=== PATIENT | male | born 1940 | race Caucasian/White ===

== ENCOUNTER 2023-10-24 11:13 | Inpatient (IN) | payer MEDICARE, MEDICAID ==
[2023-10-24 11:56] LABS: BASOPHILS PERCENT AUTO 0.1 % (0.2-1.2); EOSINOPHILS ABSOLUTE AUTO 0.5 x10^3/uL (0.0-0.5); EOSINOPHILS PERCENT AUTO 3.6 % (0.0-4.0); HEMATOCRIT 47.1 % (40.0-52.0); HEMOGLOBIN 14.3 g/dL (14.0-18.0); IMMATURE GRAN ABSOLUTE AUTO 0.04 x10^3/uL (0.00-0.07); LYMPHOCYTES ABSOLUTE AUTO 1.3 x10^3/uL (1.0-4.8); LYMPHOCYTES PERCENT AUTO 9.3 % (25.0-50.0); MEAN CORPUSCULAR HEMOGLOBIN 30.2 pg (26.0-32.0); MEAN CORPUSCULAR HGB CONC 30.4 g/dL (32.0-36.0); MEAN CORPUSCULAR VOLUME 99.4 fL (78.0-93.0); MONOCYTES ABSOLUTE AUTO 1.2 x10^3/uL (0.0-0.8); MONOCYTES PERCENT AUTO 8.9 % (2.0-11.0); NEUTROPHILS ABSOLUTE AUTO 10.7 x10^3/uL (1.8-7.7); NEUTROPHILS PERCENT AUTO 77.8 % (50.0-80.0); PLATELET COUNT,PLT 159 x10^3/uL (130-400); RED BLOOD CELL COUNT 4.74 x10^6/uL (4.5-6.0); WHITE BLOOD CELL COUNT,WBC 13.8 x10^3/uL (4.0-10.0)
[2023-10-24 12:20] LABS: A/G RATIO 0.66; ALANINE AMINOTRANSFERASE,ALT 49 U/L (16-63); ALBUMIN 2.9 g/dL (3.4-5.0); ALKALINE PHOSPHATASE 62 U/L (46-116); ASPARTATE AMNIOTRANSFERASE,AST 31 U/L (15-37); BILIRUBIN TOTAL 0.7 mg/dL (0.2-1.0); CALCIUM 8.6 mg/dL (8.5-10.1); CARBON DIOXIDE,CO2 27 mmol/L (21-32); CHLORIDE,CL 125 mmol/L (98-107); GLUCOSE RANDOM 140 mg/dL (70-99); POTASSIUM,K 4.9 mmol/L (3.5-5.1); PROTEIN TOTAL,TP 7.3 g/dL (6.4-8.2)
[2023-10-24 12:21] LABS: ANION GAP 17.9 mmol/L (5-15); ESTIMATED GFR 14 mL/min (>=60)
[2023-10-24 12:22] LABS: BLOOD UREA NITROGEN,BUN 148 mg/dL (7-18); CREATININE 4.1 mg/dL (0.70-1.30); SODIUM,NA 165 mmol/L (136-145)
[2023-10-24] MEDS: Lactated Ringers 1,000 ML IV ONE (12:31)
[2023-10-24 12:49] LABS: CORONAVIRUS COVID-19 NAA NEGATIVE (NEGATIVE)
[2023-10-24 12:50] LABS: INFLUENZA B NAA NEGATIVE (NEGATIVE)
[2023-10-24 12:51] LABS: INFLUENZA A NAA NEGATIVE (NEGATIVE); RESPIRATORY SYNCYTIAL VIR NAA NEGATIVE (NEGATIVE)
[2023-10-24] MEDS: cefTRIAXone 1 GM Vial IVPUSH ONE (14:02)
[2023-10-24] MEDS ORDERED: Acetaminophen 325 MG Tab PO PRN (17:43)
[2023-10-24] MEDS ORDERED: Ondansetron 4 MG Tab.DIS PO PRN (17:43)
[2023-10-24] MEDS ORDERED: Polyethylene Glycol 3350 Powder 17 GM Packet PO PRN (17:43)
[2023-10-24 18:31] LABS: ANION GAP 16.7 mmol/L (5-15); CALCIUM 8.6 mg/dL (8.5-10.1); EST CRCL DRUG DOSING (CG) 15.15 mL/min; POTASSIUM,K 4.7 mmol/L (3.5-5.1)
[2023-10-24 18:32] LABS: CREATININE 3.7 mg/dL (0.70-1.30)
[2023-10-24] MEDS: Sodium Chloride 0.45% 1,000 ML IV SCH (18:49)
[2023-10-24] MEDS: Sodium Chloride 0.45% 1,000 ML IV ONE (21:55)
[2023-10-24 22:08] LABS: BILIRUBIN,URINE NEGATIVE (NEGATIVE); COLOR,URINE YELLOW (YELLOW); GLUCOSE,URINE NEGATIVE (NEGATIVE); KETONES,URINE NEGATIVE (NEGATIVE); LEUKOCYTE ESTERASE,URINE LARGE (NEGATIVE); NITRITE,URINE POSITIVE (NEGATIVE); OCCULT BLOOD,URINE TRACE-INTACT (NEGATIVE); PH,URINE 8.5 (5.0-8.0); PROTEIN,URINE 30 mg/dL (NEGATIVE); UROBILINOGEN,URINE 0.2 EU/dL (0.2)
[2023-10-24 22:09] LABS: APPEARANCE,URINE CLOUDY (CLEAR)
[2023-10-24 22:13] LABS: AMORPHOUS SEDIMENT,URINE FEW; BACTERIA,URINE MODERATE /HPF (NOT SEEN); HYALINE CASTS,URINE FEW; MUCUS,URINE FEW /LPF (NOT SEEN); SQUAMOUS EPITHELIAL CELLS,UR NOT SEEN /HPF (NOT SEEN); WBC,URINE 50-75 /HPF (NOT SEEN)
[2023-10-24 22:15] LABS: ANION GAP 14.6 mmol/L (5-15); CALCIUM 8.3 mg/dL (8.5-10.1); EST CRCL DRUG DOSING (CG) 16.49 mL/min; POTASSIUM,K 4.6 mmol/L (3.5-5.1)
[2023-10-24 22:16] LABS: CREATININE 3.4 mg/dL (0.70-1.30)
[2023-10-25 08:08] LABS: BASOPHILS PERCENT AUTO 0.3 % (0.2-1.2); EOSINOPHILS ABSOLUTE AUTO 0.4 x10^3/uL (0.0-0.5); EOSINOPHILS PERCENT AUTO 3.2 % (0.0-4.0); HEMOGLOBIN 14.2 g/dL (14.0-18.0); IMMATURE GRAN ABSOLUTE AUTO 0.03 x10^3/uL (0.00-0.07); LYMPHOCYTES ABSOLUTE AUTO 1.3 x10^3/uL (1.0-4.8); LYMPHOCYTES PERCENT AUTO 11.6 % (25.0-50.0); MEAN CORPUSCULAR HEMOGLOBIN 30.9 pg (26.0-32.0); MEAN CORPUSCULAR HGB CONC 30.2 g/dL (32.0-36.0); MEAN CORPUSCULAR VOLUME 102.2 fL (78.0-93.0); MONOCYTES PERCENT AUTO 9.3 % (2.0-11.0); NEUTROPHILS ABSOLUTE AUTO 8.4 x10^3/uL (1.8-7.7); NEUTROPHILS PERCENT AUTO 75.3 % (50.0-80.0); PLATELET COUNT,PLT 139 x10^3/uL (130-400); WHITE BLOOD CELL COUNT,WBC 11.1 x10^3/uL (4.0-10.0)
[2023-10-25 08:33] LABS: A/G RATIO 0.58; ALBUMIN 2.5 g/dL (3.4-5.0); BILIRUBIN TOTAL 0.9 mg/dL (0.2-1.0); CALCIUM 8.5 mg/dL (8.5-10.1); CREATININE 2.9 mg/dL (0.70-1.30); EST CRCL DRUG DOSING (CG) 19.33 mL/min; MAGNESIUM 2.9 mg/dL (1.8-2.4); POTASSIUM,K 4.4 mmol/L (3.5-5.1); PROTEIN TOTAL,TP 6.8 g/dL (6.4-8.2)
[2023-10-25 08:34] LABS: ANION GAP 15.4 mmol/L (5-15)
[2023-10-25] MEDS: Enoxaparin 30 MG/0.3 ML Syringe SUBCUT SCH (09:25)
[2023-10-25] MEDS ORDERED: Acetaminophen 325 MG Tab PO PRN (10:46)
[2023-10-25] MEDS ORDERED: Albuterol 0.083% 2.5 MG/3 ML Neb Soln INH PRN (10:46)
[2023-10-25] MEDS: Potassium Chloride 20 MEQ Tab.ER PO SCH (11:22)
[2023-10-25] MEDS: Polyethylene Glycol 3350 Powder 17 GM Packet PO SCH (11:22)
[2023-10-25] MEDS: Furosemide 40 MG Tab PO SCH (11:22)
[2023-10-25] MEDS: Acetaminophen 325 MG Tab PO SCH (11:23)
[2023-10-25] MEDS: Sennosides/Docusate Sodium 50-8.6 MG Tab PO SCH (11:23)
[2023-10-25] MEDS: oxyCODONE 5 MG Tab PO SCH (11:23)
[2023-10-25] MEDS: FLUoxetine 10 MG Cap PO SCH (11:23)
[2023-10-25] MEDS: Famotidine 20 MG Tab PO SCH (11:23)
[2023-10-25] MEDS: Lisinopril 5 MG Tab PO SCH (11:23)
[2023-10-25] MEDS: amLODIPine 5 MG Tab PO SCH (11:23)
[2023-10-25] MEDS: cefTRIAXone 1 GM Vial IVPUSH SCH (11:43)
[2023-10-25] MEDS: Albuterol/Ipratropium 3.0-0.5 MG/3 ML Neb Soln INH SCH (11:43)
[2023-10-25] MEDS: Sodium Chloride 0.9% 1,000 ML IV SCH (11:43)
[2023-10-25] MEDS ORDERED: Benzonatate 100 MG Cap PO SCH (13:00)
[2023-10-25] MEDS: Gabapentin 300 MG Cap PO SCH (14:49)
[2023-10-25 16:27] LABS: CALCIUM 8.4 mg/dL (8.5-10.1); CREATININE 2.7 mg/dL (0.70-1.30); EST CRCL DRUG DOSING (CG) 20.76 mL/min; POTASSIUM,K 4.2 mmol/L (3.5-5.1)
[2023-10-25 16:28] LABS: ANION GAP 19.2 mmol/L (5-15)
[2023-10-25] MEDS: Sodium Chloride 0.45% 1,000 ML IV SCH (16:54)
[2023-10-25 20:09] LABS: CALCIUM 8.1 mg/dL (8.5-10.1); CREATININE 2.5 mg/dL (0.70-1.30); EST CRCL DRUG DOSING (CG) 22.42 mL/min; POTASSIUM,K 4.1 mmol/L (3.5-5.1)
[2023-10-25 20:12] LABS: ANION GAP 16.1 mmol/L (5-15)
[2023-10-25] MEDS: Melatonin 3 MG Tab PO SCH (21:03)
[2023-10-25] MEDS: Sodium Chloride 0.45% 1,000 ML IV ONE (21:09)
[2023-10-26 07:45] LABS: CALCIUM 8.4 mg/dL (8.5-10.1); CREATININE 2.2 mg/dL (0.70-1.30); EST CRCL DRUG DOSING (CG) 25.48 mL/min
[2023-10-26] MEDS: Sodium Chloride 0.9% 10 ML Syringe FLUSH PRN (08:31)
[2023-10-26] MEDS: Dextrose 5% in Water 1,000 ML IV SCH (15:49)
[2023-10-26 17:21] LABS: CALCIUM 8.2 mg/dL (8.5-10.1); EST CRCL DRUG DOSING (CG) 28.03 mL/min
[2023-10-26] MEDS ORDERED: Naloxone 0.4 MG/ML SDV IVPUSH PRN (19:52)
[2023-10-26] MEDS: HYDROmorphone 0.5 MG/0.5 ML Syringe IVPUSH PRN (20:08)
[2023-10-27 06:49] LABS: BASOPHILS PERCENT AUTO 0.1 % (0.2-1.2); EOSINOPHILS ABSOLUTE AUTO 0.4 x10^3/uL (0.0-0.5); EOSINOPHILS PERCENT AUTO 3.9 % (0.0-4.0); HEMATOCRIT 44.7 % (40.0-52.0); HEMOGLOBIN 13.8 g/dL (14.0-18.0); IMMATURE GRAN ABSOLUTE AUTO 0.03 x10^3/uL (0.00-0.07); LYMPHOCYTES ABSOLUTE AUTO 1.5 x10^3/uL (1.0-4.8); LYMPHOCYTES PERCENT AUTO 16.2 % (25.0-50.0); MEAN CORPUSCULAR HEMOGLOBIN 30.5 pg (26.0-32.0); MEAN CORPUSCULAR HGB CONC 30.9 g/dL (32.0-36.0); MEAN CORPUSCULAR VOLUME 98.9 fL (78.0-93.0); MONOCYTES ABSOLUTE AUTO 0.9 x10^3/uL (0.0-0.8); MONOCYTES PERCENT AUTO 9.4 % (2.0-11.0); NEUTROPHILS ABSOLUTE AUTO 6.6 x10^3/uL (1.8-7.7); NEUTROPHILS PERCENT AUTO 70.1 % (50.0-80.0); PLATELET COUNT,PLT 144 x10^3/uL (130-400); RED BLOOD CELL COUNT 4.52 x10^6/uL (4.5-6.0); WHITE BLOOD CELL COUNT,WBC 9.4 x10^3/uL (4.0-10.0)
[2023-10-27 07:05] LABS: CALCIUM 8.4 mg/dL (8.5-10.1); CREATININE 1.8 mg/dL (0.70-1.30); EST CRCL DRUG DOSING (CG) 31.14 mL/min; POTASSIUM,K 3.8 mmol/L (3.5-5.1)
[2023-10-27 07:06] LABS: ANION GAP 12.8 mmol/L (5-15)
[2023-10-27] MEDS: Lactated Ringers 1,000 ML IV SCH (09:34)
[2023-10-28 06:50] LABS: BASOPHILS PERCENT AUTO 0.1 % (0.2-1.2); EOSINOPHILS ABSOLUTE AUTO 0.3 x10^3/uL (0.0-0.5); EOSINOPHILS PERCENT AUTO 3.3 % (0.0-4.0); HEMATOCRIT 40.8 % (40.0-52.0); HEMOGLOBIN 12.6 g/dL (14.0-18.0); IMMATURE GRAN ABSOLUTE AUTO 0.03 x10^3/uL (0.00-0.07); LYMPHOCYTES ABSOLUTE AUTO 1.5 x10^3/uL (1.0-4.8); LYMPHOCYTES PERCENT AUTO 16.7 % (25.0-50.0); MEAN CORPUSCULAR HEMOGLOBIN 30.3 pg (26.0-32.0); MEAN CORPUSCULAR HGB CONC 30.9 g/dL (32.0-36.0); MEAN CORPUSCULAR VOLUME 98.1 fL (78.0-93.0); MONOCYTES ABSOLUTE AUTO 0.8 x10^3/uL (0.0-0.8); MONOCYTES PERCENT AUTO 8.8 % (2.0-11.0); NEUTROPHILS ABSOLUTE AUTO 6.2 x10^3/uL (1.8-7.7); NEUTROPHILS PERCENT AUTO 70.8 % (50.0-80.0); PLATELET COUNT,PLT 143 x10^3/uL (130-400); RED BLOOD CELL COUNT 4.16 x10^6/uL (4.5-6.0); WHITE BLOOD CELL COUNT,WBC 8.7 x10^3/uL (4.0-10.0)
[2023-10-28 07:20] LABS: A/G RATIO 0.54; BILIRUBIN TOTAL 0.7 mg/dL (0.2-1.0); CALCIUM 8.2 mg/dL (8.5-10.1); CREATININE 1.5 mg/dL (0.70-1.30); EST CRCL DRUG DOSING (CG) 37.37 mL/min; MAGNESIUM 2.3 mg/dL (1.8-2.4); POTASSIUM,K 3.5 mmol/L (3.5-5.1); PROTEIN TOTAL,TP 5.7 g/dL (6.4-8.2)
[2023-10-28 07:22] LABS: ANION GAP 12.5 mmol/L (5-15)
[2023-10-29 06:59] LABS: BASOPHILS PERCENT AUTO 0.1 % (0.2-1.2); EOSINOPHILS ABSOLUTE AUTO 0.3 x10^3/uL (0.0-0.5); EOSINOPHILS PERCENT AUTO 3.3 % (0.0-4.0); HEMATOCRIT 39.5 % (40.0-52.0); HEMOGLOBIN 12.1 g/dL (14.0-18.0); IMMATURE GRAN ABSOLUTE AUTO 0.03 x10^3/uL (0.00-0.07); LYMPHOCYTES ABSOLUTE AUTO 2.1 x10^3/uL (1.0-4.8); LYMPHOCYTES PERCENT AUTO 23.4 % (25.0-50.0); MEAN CORPUSCULAR HEMOGLOBIN 30.2 pg (26.0-32.0); MEAN CORPUSCULAR HGB CONC 30.6 g/dL (32.0-36.0); MEAN CORPUSCULAR VOLUME 98.5 fL (78.0-93.0); MONOCYTES ABSOLUTE AUTO 0.7 x10^3/uL (0.0-0.8); MONOCYTES PERCENT AUTO 7.8 % (2.0-11.0); NEUTROPHILS ABSOLUTE AUTO 5.7 x10^3/uL (1.8-7.7); NEUTROPHILS PERCENT AUTO 65.1 % (50.0-80.0); PLATELET COUNT,PLT 147 x10^3/uL (130-400); RED BLOOD CELL COUNT 4.01 x10^6/uL (4.5-6.0); WHITE BLOOD CELL COUNT,WBC 8.8 x10^3/uL (4.0-10.0)
[2023-10-29 07:08] VITALS: PULSE 57
[2023-10-29 07:33] LABS: A/G RATIO 0.58; ALBUMIN 2.1 g/dL (3.4-5.0); BILIRUBIN TOTAL 0.4 mg/dL (0.2-1.0); C-REACTIVE PROTEIN 4.8 mg/dL (<=0.50); CALCIUM 8.2 mg/dL (8.5-10.1); CREATININE 1.7 mg/dL (0.70-1.30); EST CRCL DRUG DOSING (CG) 32.97 mL/min; POTASSIUM,K 3.6 mmol/L (3.5-5.1); PROTEIN TOTAL,TP 5.7 g/dL (6.4-8.2)
[2023-10-29 07:35] LABS: ANION GAP 11.6 mmol/L (5-15)
[2023-10-29 08:20] VITALS: BP 90/38
[2023-10-29] MEDS: Hydrochlorothiazide 12.5 MG Cap PO SCH (08:28)
== END 2023-10-29 09:55 | DRG 682 ==
LOC: VM.ED 11:13 → VM.MS 13:53
PROVIDERS: ADMIT Physician Assistant; ATTEND Family Medicine
DX: N17.9 Acute kidney failure, unspecified (principal); G93.41 Metabolic encephalopathy; E87.0 Hyperosmolality and hypernatremia; I13.0 Hypertensive heart and chronic kidney disease with heart failure and stage 1 through stage 4 chronic kidney disease, or unspecified chronic kidney disease; I50.32 Chronic diastolic (congestive) heart failure; Z68.42 Body mass index [BMI] 45.0-49.9, adult; E86.0 Dehydration; F03.90 Unspecified dementia, unspecified severity, without behavioral disturbance, psychotic disturbance, mood disturbance, and anxiety; Z66 Do not resuscitate; B96.4 Proteus (mirabilis) (morganii) as the cause of diseases classified elsewhere; E66.01 Morbid (severe) obesity due to excess calories; G89.29 Other chronic pain; M54.50 Low back pain, unspecified; M10.9 Gout, unspecified; G47.00 Insomnia, unspecified; M19.90 Unspecified osteoarthritis, unspecified site; K21.9 Gastro-esophageal reflux disease without esophagitis; R41.82 Altered mental status, unspecified; N18.31 Chronic kidney disease, stage 3a; F34.1 Dysthymic disorder; M79.7 Fibromyalgia; N30.90 Cystitis, unspecified without hematuria; J44.9 Chronic obstructive pulmonary disease, unspecified; I11.0 Hypertensive heart disease with heart failure; F32.A Depression, unspecified; E83.42 Hypomagnesemia; Z11.52 Encounter for screening for COVID-19; Z86.718 Personal history of other venous thrombosis and embolism; Z98.49 Cataract extraction status, unspecified eye; I50.9 Heart failure, unspecified; E66.9 Obesity, unspecified; Z98.890 Other specified postprocedural states; Z87.891 Personal history of nicotine dependence; Z79.01 Long term (current) use of anticoagulants; Z79.899 Other long term (current) drug therapy
CPT/HCPCS: 0241U; 36415; 70450; 71045; 80048; 80053; 81001; 82140; 82550; 83605; 83690; 83735; 83880; 83935; 84295; 84484; 85025; 86140; 87040; 87070; 87086; 87088; 87186; 92610-GN; 93005; 94640; 94760; 96361; 96374; 97165-GO; 97530-GO; 99284; 99285-25; A9270-GY; J0696; J1170; J1650; J3490; J7030; J7060; J7120; J7620-GY

== ENCOUNTER 2023-12-24 17:49 | Inpatient (IN) | payer MEDICARE, MEDICAID ==
[2023-12-24] MEDS: Acetaminophen 500 MG Tab PO ONE (18:10)
[2023-12-24 18:11] LABS: BASOPHILS PERCENT AUTO 0.2 % (0.2-1.2); EOSINOPHILS ABSOLUTE AUTO 0.1 x10^3/uL (0.0-0.5); EOSINOPHILS PERCENT AUTO 0.9 % (0.0-4.0); HEMATOCRIT 43.1 % (40.0-52.0); HEMOGLOBIN 14.1 g/dL (14.0-18.0); IMMATURE GRAN ABSOLUTE AUTO 0.04 x10^3/uL (0.00-0.07); LYMPHOCYTES ABSOLUTE AUTO 1.3 x10^3/uL (1.0-4.8); LYMPHOCYTES PERCENT AUTO 9.2 % (25.0-50.0); MEAN CORPUSCULAR HEMOGLOBIN 30.4 pg (26.0-32.0); MEAN CORPUSCULAR HGB CONC 32.7 g/dL (32.0-36.0); MEAN CORPUSCULAR VOLUME 92.9 fL (78.0-93.0); MONOCYTES ABSOLUTE AUTO 1.6 x10^3/uL (0.0-0.8); MONOCYTES PERCENT AUTO 11.3 % (2.0-11.0); NEUTROPHILS ABSOLUTE AUTO 10.9 x10^3/uL (1.8-7.7); NEUTROPHILS PERCENT AUTO 78.1 % (50.0-80.0); PLATELET COUNT,PLT 251 x10^3/uL (130-400); RED BLOOD CELL COUNT 4.64 x10^6/uL (4.5-6.0); WHITE BLOOD CELL COUNT,WBC 13.9 x10^3/uL (4.0-10.0)
[2023-12-24] MEDS: cefTRIAXone 1 GM Vial IVPUSH ONE (18:17)
[2023-12-24 18:28] LABS: PROTHROMBIN TIME 10.4 SEC (8.9-11.5); PTT,PARTIAL THROMBOPLSTIN TIME 27.1 SEC (21.9-33.8)
[2023-12-24 18:32] LABS: A/G RATIO 0.71; ALANINE AMINOTRANSFERASE,ALT 14 U/L (16-63); ALKALINE PHOSPHATASE 69 U/L (46-116); ASPARTATE AMNIOTRANSFERASE,AST 15 U/L (15-37); BILIRUBIN TOTAL 0.3 mg/dL (0.2-1.0); BLOOD UREA NITROGEN,BUN 32 mg/dL (7-18); C-REACTIVE PROTEIN 7.75 mg/dL (<=0.50); CALCIUM 8.5 mg/dL (8.5-10.1); CARBON DIOXIDE,CO2 30 mmol/L (21-32); CHLORIDE,CL 106 mmol/L (98-107); CREATININE 1.4 mg/dL (0.70-1.30); GLUCOSE RANDOM 145 mg/dL (70-99); MAGNESIUM 1.8 mg/dL (1.8-2.4); POTASSIUM,K 3.9 mmol/L (3.5-5.1); PROTEIN TOTAL,TP 7.2 g/dL (6.4-8.2); SODIUM,NA 147 mmol/L (136-145)
[2023-12-24 18:33] LABS: ANION GAP 14.9 mmol/L (5-15); ESTIMATED GFR 50 mL/min (>=60)
[2023-12-24 18:35] LABS: LACTIC ACID 1.2 mmol/L (0.4-2.0)
[2023-12-24] MEDS: Azithromycin 500 MG in Sodium Chloride 0.9% 250 ML IV ONE (18:58)
[2023-12-24 19:05] LABS: CORONAVIRUS COVID-19 NAA NEGATIVE (NEGATIVE)
[2023-12-24 19:06] LABS: INFLUENZA A NAA NEGATIVE (NEGATIVE); INFLUENZA B NAA NEGATIVE (NEGATIVE); RESPIRATORY SYNCYTIAL VIR NAA NEGATIVE (NEGATIVE)
[2023-12-24] MEDS: Albuterol 0.083% 2.5 MG/3 ML Neb Soln NEB ONE (19:30)
[2023-12-24] MEDS ORDERED: Acetaminophen 325 MG Tab PO PRN (20:25)
[2023-12-24] MEDS ORDERED: Enoxaparin 40 MG/0.4 ML Syringe SUBCUT SCH (20:30)
[2023-12-24] MEDS ORDERED: DIMETHICONE TP SCH (21:00)
[2023-12-24] MEDS: Hydrochlorothiazide 25 MG Tab PO ONE (21:57)
[2023-12-24] MEDS: methylPREDNISolone Sodium Succinate 40 MG/1 ML SDV IVPUSH SCH (21:57)
[2023-12-24] MEDS: Albuterol/Ipratropium 3.0-0.5 MG/3 ML Neb Soln NEB SCH (21:57)
[2023-12-24] MEDS: Melatonin 3 MG Tab PO SCH (21:58)
[2023-12-24] MEDS: Gabapentin 300 MG Cap PO SCH (21:58)
[2023-12-24] MEDS: Enoxaparin 120 MG/0.8 ML Syringe SUBCUT SCH (22:32)
[2023-12-25] MEDS: Albuterol 0.083% 2.5 MG/3 ML Neb Soln NEB PRN (05:52)
[2023-12-25 07:03] LABS: BASOPHILS PERCENT AUTO 0.1 % (0.2-1.2); EOSINOPHILS PERCENT AUTO 0.1 % (0.0-4.0); HEMATOCRIT 44.1 % (40.0-52.0); HEMOGLOBIN 14.3 g/dL (14.0-18.0); IMMATURE GRAN ABSOLUTE AUTO 0.04 x10^3/uL (0.00-0.07); LYMPHOCYTES ABSOLUTE AUTO 0.7 x10^3/uL (1.0-4.8); LYMPHOCYTES PERCENT AUTO 4.6 % (25.0-50.0); MEAN CORPUSCULAR HEMOGLOBIN 30.2 pg (26.0-32.0); MEAN CORPUSCULAR HGB CONC 32.4 g/dL (32.0-36.0); MEAN CORPUSCULAR VOLUME 93.2 fL (78.0-93.0); MONOCYTES ABSOLUTE AUTO 0.2 x10^3/uL (0.0-0.8); MONOCYTES PERCENT AUTO 1.4 % (2.0-11.0); NEUTROPHILS ABSOLUTE AUTO 13.7 x10^3/uL (1.8-7.7); NEUTROPHILS PERCENT AUTO 93.5 % (50.0-80.0); PLATELET COUNT,PLT 179 x10^3/uL (130-400); RED BLOOD CELL COUNT 4.73 x10^6/uL (4.5-6.0)
[2023-12-25] MEDS: Enoxaparin 80 MG/0.8 ML Syringe SUBCUT ONE (07:11)
[2023-12-25 07:19] LABS: CALCIUM 8.7 mg/dL (8.5-10.1); CREATININE 1.2 mg/dL (0.70-1.30); EST CRCL DRUG DOSING (CG) 46.71 mL/min; POTASSIUM,K 4.4 mmol/L (3.5-5.1)
[2023-12-25 07:21] LABS: ANION GAP 13.4 mmol/L (5-15)
[2023-12-25 07:29] LABS: WHITE BLOOD CELL COUNT,WBC 14.7 x10^3/uL (4.0-10.0)
[2023-12-25] MEDS ORDERED: 50% Dextrose in Water 50 ML Syringe IVPUSH PRN (08:28)
[2023-12-25] MEDS ORDERED: Glucagon,Human Recombinant 1 MG Vial IM PRN (08:28)
[2023-12-25] MEDS: cefTRIAXone 1 GM Vial IVPUSH SCH (09:34)
[2023-12-25] MEDS: Azithromycin 500 MG in Sodium Chloride 0.9% 250 ML IV SCH (09:35)
[2023-12-25] MEDS: Acetaminophen 325 MG Tab PO SCH (09:44)
[2023-12-25] MEDS: Sennosides/Docusate Sodium 50-8.6 MG Tab PO SCH (09:44)
[2023-12-25] MEDS: amLODIPine 5 MG Tab PO SCH (09:44)
[2023-12-25] MEDS: oxyCODONE 5 MG Tab PO SCH (09:44)
[2023-12-25] MEDS: Polyethylene Glycol 3350 Powder 17 GM Packet PO SCH (09:45)
[2023-12-25] MEDS: Famotidine 20 MG Tab PO SCH (09:45)
[2023-12-25] MEDS: Furosemide 40 MG/4 ML VIAL IV SCH (10:51)
[2023-12-25] MEDS: Insulin Lispro 100 Units/ML 3 ML Vial SUBCUT SCH ×2 (10:52→20:32)
[2023-12-25] MEDS: Enoxaparin 150 MG/1 ML Syringe SUBCUT SCH (10:53)
[2023-12-25] MEDS: Albuterol/Ipratropium 3.0-0.5 MG/3 ML Neb Soln NEB SCH (11:17)
[2023-12-25] MEDS: methylPREDNISolone Sodium Succinate 125 MG/2 ML SDV IVPUSH SCH ×2 (13:04→13:16)
[2023-12-25] MEDS: Sodium Chloride 0.9% 10 ML Syringe FLUSH PRN (20:27)
[2023-12-25] MEDS: Apixaban 2.5 MG Tab PO SCH (20:34)
[2023-12-25] MEDS: guaiFENesin/Dextromethorphan 100-10 MG/5 ML Soln 10 ML Cup PO PRN (20:34)
[2023-12-26 06:54] LABS: BASOPHILS PERCENT AUTO 0.1 % (0.2-1.2); HEMATOCRIT 41.6 % (40.0-52.0); HEMOGLOBIN 13.6 g/dL (14.0-18.0); IMMATURE GRAN ABSOLUTE AUTO 0.05 x10^3/uL (0.00-0.07); LYMPHOCYTES PERCENT AUTO 6.9 % (25.0-50.0); MEAN CORPUSCULAR HEMOGLOBIN 30.2 pg (26.0-32.0); MEAN CORPUSCULAR HGB CONC 32.7 g/dL (32.0-36.0); MEAN CORPUSCULAR VOLUME 92.2 fL (78.0-93.0); MONOCYTES ABSOLUTE AUTO 0.4 x10^3/uL (0.0-0.8); MONOCYTES PERCENT AUTO 2.6 % (2.0-11.0); NEUTROPHILS ABSOLUTE AUTO 12.4 x10^3/uL (1.8-7.7); PLATELET COUNT,PLT 244 x10^3/uL (130-400); RED BLOOD CELL COUNT 4.51 x10^6/uL (4.5-6.0); WHITE BLOOD CELL COUNT,WBC 13.7 x10^3/uL (4.0-10.0)
[2023-12-26 07:23] LABS: A/G RATIO 0.7; ALBUMIN 2.8 g/dL (3.4-5.0); BILIRUBIN TOTAL 0.3 mg/dL (0.2-1.0); C-REACTIVE PROTEIN 6.44 mg/dL (<=0.50); CALCIUM 8.6 mg/dL (8.5-10.1); CREATININE 1.3 mg/dL (0.70-1.30); EST CRCL DRUG DOSING (CG) 43.12 mL/min; POTASSIUM,K 3.6 mmol/L (3.5-5.1); PROTEIN TOTAL,TP 6.8 g/dL (6.4-8.2)
[2023-12-26 07:25] LABS: ANION GAP 13.6 mmol/L (5-15)
[2023-12-26] MEDS: guaiFENesin 600 MG Tab.ER PO SCH ×2 (17:34→18:43)
[2023-12-28 08:09] LABS: CALCIUM 8.2 mg/dL (8.5-10.1); CREATININE 1.4 mg/dL (0.70-1.30); EST CRCL DRUG DOSING (CG) 40.04 mL/min
[2023-12-29 06:49] LABS: HEMATOCRIT 41.5 % (40.0-52.0); HEMOGLOBIN 13.7 g/dL (14.0-18.0); MEAN CORPUSCULAR HEMOGLOBIN 30.1 pg (26.0-32.0); MEAN CORPUSCULAR VOLUME 91.2 fL (78.0-93.0); RED BLOOD CELL COUNT 4.55 x10^6/uL (4.5-6.0)
[2023-12-29] MEDS: Apixaban 2.5 MG Tab PO ONE (13:46)
[2023-12-29] MEDS: Apixaban 2.5 MG Tab PO SCH (20:58)
[2023-12-30 06:58] LABS: CALCIUM 7.5 mg/dL (8.5-10.1); CREATININE 1.3 mg/dL (0.70-1.30); EST CRCL DRUG DOSING (CG) 43.12 mL/min; POTASSIUM,K 3.2 mmol/L (3.5-5.1)
[2023-12-30 06:59] LABS: ANION GAP 10.2 mmol/L (5-15)
[2023-12-30 14:01] VITALS: BP 120/61; PULSE 72
[2024-01-05] MEDS ORDERED: Apixaban 2.5 MG Tab PO SCH (09:00)
== END 2023-12-30 13:30 | DRG 193 ==
LOC: VM.ED 17:49 → VM.MS 19:18
PROVIDERS: ADMIT Internal Medicine; ATTEND Family Medicine
DX: J18.9 Pneumonia, unspecified organism (principal); I11.0 Hypertensive heart disease with heart failure; I50.9 Heart failure, unspecified; I50.33 Acute on chronic diastolic (congestive) heart failure; E66.9 Obesity, unspecified; J80 Acute respiratory distress syndrome; Z68.43 Body mass index [BMI] 50.0-59.9, adult; I13.0 Hypertensive heart and chronic kidney disease with heart failure and stage 1 through stage 4 chronic kidney disease, or unspecified chronic kidney disease; J44.1 Chronic obstructive pulmonary disease with (acute) exacerbation; J44.0 Chronic obstructive pulmonary disease with (acute) lower respiratory infection; E87.0 Hyperosmolality and hypernatremia; N17.9 Acute kidney failure, unspecified; F03.B3 Unspecified dementia, moderate, with mood disturbance; G93.40 Encephalopathy, unspecified; I82.403 Acute embolism and thrombosis of unspecified deep veins of lower extremity, bilateral; Z66 Do not resuscitate; E66.01 Morbid (severe) obesity due to excess calories; K21.9 Gastro-esophageal reflux disease without esophagitis; M19.90 Unspecified osteoarthritis, unspecified site; G89.29 Other chronic pain; G31.84 Mild cognitive impairment of uncertain or unknown etiology; M1A.9XX0 Chronic gout, unspecified, without tophus (tophi); M79.7 Fibromyalgia; M48.061 Spinal stenosis, lumbar region without neurogenic claudication; R13.10 Dysphagia, unspecified; N18.31 Chronic kidney disease, stage 3a; F34.1 Dysthymic disorder; M79.89 Other specified soft tissue disorders; Z79.51 Long term (current) use of inhaled steroids; Z79.899 Other long term (current) drug therapy; Z86.16 Personal history of COVID-19; Z98.49 Cataract extraction status, unspecified eye; Z87.891 Personal history of nicotine dependence; Z98.890 Other specified postprocedural states; Z86.718 Personal history of other venous thrombosis and embolism; Z87.898 Personal history of other specified conditions
CPT/HCPCS: 0241U; 36415; 51702; 71045; 80048; 80053; 82947; 83605; 83735; 83880; 84145; 84484; 85025; 85027; 85379; 85610; 85730; 86140; 87040; 87070; 87205; 93005; 93970; 94640; 94760; 96365; 96375; 99284; 99285-25; A9270-GY; J0456; J0696; J1650; J1815-GY; J1940; J2920; J2930; J3490; J7050; J7613-GY; J7620-GY